=== PATIENT | male | born 1985 | race Caucasian/White ===

== ENCOUNTER 2020-09-18 15:55 | Emergency (ER) | payer MEDICAID ==
[~2020-09-18] VITALS: Ht 177.8 cm; Wt 88.6 kg
[2020-09-18 16:08] VITALS: BP 144/92
[2020-09-18] MEDS ORDERED: IBUPROFEN 400 MG TABLET PO ONE (18:45)
[2020-09-18] MEDS ORDERED: ACETAMINOPHEN 325 MG TABLET PO ONE (18:45)
[2020-09-18] MEDS ORDERED: BACITRACIN 0.9 GM PACKET OINTMENT TP ONE (19:00)
== END 2020-09-18 19:36 | disposition home or self-care (01) ==
LOC: EMS 15:55
DX: S93.401A Sprain of unspecified ligament of right ankle, initial encounter (principal); F12.90 Cannabis use, unspecified, uncomplicated; Z88.8 Allergy status to other drugs, medicaments and biological substances; W10.9XXA Fall (on) (from) unspecified stairs and steps, initial encounter; Y93.89 Activity, other specified; Y92.008 Other place in unspecified non-institutional (private) residence as the place of occurrence of the external cause; Y99.8 Other external cause status

== ENCOUNTER 2020-10-24 09:39 | Emergency (ER) | payer MEDICAID ==
[~2020-10-24] VITALS: Ht 180.3 cm; Wt 95.5 kg
[2020-10-24] MEDS ORDERED: ACET-66 PO (09:43)
[2020-10-24 11:12] LABS: BASOPHILS % (AUTO) 0.5 % (0.0-2.0); EOSINOPHILS % (AUTO) 0.4 % (1.0-6.0); HEMATOCRIT 44.9 % (41-53); HEMOGLOBIN 15.1 g/dL (13.5-17.5); LYMPHOCYTES # (AUTO) 0.8 K/uL (1.0-4.8); LYMPHOCYTES % (AUTO) 7.8 % (22.0-44.0); MEAN CORPUSCULAR HEMOGLOBIN 31.8 pg (26.0-34.0); MEAN CORPUSCULAR HGB CONC 33.7 G/dL (31.0-37.0); MEAN CORPUSCULAR VOLUME 94 fL (80-100); MONOCYTES # (AUTO) 0.7 K/uL (0.1-1.0); MONOCYTES % (AUTO) 7.4 % (2.0-9.0); NEUTROPHILS # (AUTO) 8.1 K/uL (1.8-7.7); NEUTROPHILS % (AUTO) 83.9 % (40.0-70.0); PLATELET COUNT (AUTO) 215 K/uL (150-450); RED BLOOD CELL COUNT(AUTO) 4.77 MIL/uL (4.50-5.90); RED CELL DISTRIBUTION WIDTH 13.2 % (11.5-14.5)
[2020-10-24] MEDS ORDERED: MECLIZINE HCL 25 MG TABLET PO ONE (11:15)
[2020-10-24] MEDS ORDERED: ONDANSETRON HCL 4 MG/2 ML VIAL IVP ONE (11:15)
[2020-10-24] MEDS ORDERED: KETOROLAC TROMETHAMINE 30 MG/ML VIAL IVP ONE (11:15)
[2020-10-24] MEDS ORDERED: SODIUM CHLORIDE 0.9% 1,000 ML IV ONE (11:15)
[2020-10-24] MEDS ORDERED: ACETAMINOPHEN 500 MG TABLET PO ONE (11:15)
[2020-10-24 11:16] LABS: ANION GAP 7 mmol/L (8-16); CALCIUM, TOTAL 9.6 mg/dL (8.8-10.5); CARBON DIOXIDE 28 mmol/L (22-29); CHLORIDE 104 mmol/L (98-107); CREATININE 0.83 mg/dL (0.60-1.30); GLOMERULAR FILTR. RATE CALC > 60 mL/min (>60); GLUCOSE,RANDOM 131 mg/dL (70-110); POTASSIUM 4.6 mmol/L (3.5-5.1); SODIUM SERUM 139 mmol/L (136-145); UREA NITROGEN, BLOOD 12 mg/dL (7-18)
[2020-10-24 11:23] LABS: ALANINE AMINOTRANSFERASE 56 U/L (12-78); ALBUMIN 4.1 g/dL (3.4-5.0); ALKALINE PHOSPHATASE 66 U/L (46-116); ASPARTATE AMINOTRANSFERASE 41 U/L (15-37); BILIRUBIN,TOTAL 0.5 mg/dL (0.1-1.0); TOTAL PROTEIN, SERUM 8.4 g/dL (6.4-8.2)
[2020-10-24 13:20] VITALS: BP 135/71
== END 2020-10-24 14:33 | disposition home or self-care (01) ==
LOC: EMS 09:40
DX: R42 Dizziness and giddiness (principal); R11.0 Nausea; R20.2 Paresthesia of skin; F12.90 Cannabis use, unspecified, uncomplicated
CPT/HCPCS: 36415; 80053; 85025; 93005; 96361; 96374; 96375; 99284; G0480; J1885; J2405; J7030

== ENCOUNTER 2022-09-07 13:16 | Emergency (ER) | payer MEDICAID ==
[~2022-09-07] VITALS: Ht 177.8 cm; Wt 86.4 kg
[~2022-09-07 13:16] MED LIST: ACET-3385 PO
[2022-09-07 14:18] VITALS: BP 147/92
[2022-09-07] MEDS ORDERED: AMOX250C4 PO (14:41)
[2022-09-07] MEDS ORDERED: BACITRACIN 0.9 GM PACKET OINTMENT TP ONE (14:45)
[2022-09-07] MEDS ORDERED: PERTUSS(ACELL),DIPH,TET VAC/PF 0.5 ML SYRINGE IM. ONE (14:45)
== END 2022-09-07 14:56 | disposition home or self-care (01) ==
LOC: EMS 13:18
DX: S61.512A Laceration without foreign body of left wrist, initial encounter (principal); Z87.2 Personal history of diseases of the skin and subcutaneous tissue; Z88.1 Allergy status to other antibiotic agents; W25.XXXA Contact with sharp glass, initial encounter; Y93.89 Activity, other specified; Y92.89 Other specified places as the place of occurrence of the external cause; Y99.8 Other external cause status
CPT/HCPCS: 90471; 90715; 99283

== ENCOUNTER 2023-11-13 11:08 | Emergency (ER) | payer BC, MEDICAID ==
[~2023-11-13] VITALS: Ht 180.3 cm; Wt 93.2 kg
[~2023-11-13 11:08] MED LIST changes: -ACET-3385 PO; +AMOX250C4 PO
[2023-11-13 11:19] VITALS: BP 135/80; PULSE 93; RESP 16; TEMP 98.1
== END 2023-11-13 14:11 | disposition left against medical advice (07) ==
LOC: EMS 11:08
DX: R00.2 Palpitations (principal); Z98.890 Other specified postprocedural states; Z88.8 Allergy status to other drugs, medicaments and biological substances
CPT/HCPCS: 71045; 93005; 99283

== ENCOUNTER 2024-03-24 14:41 | Emergency (ER) | payer BC, MEDICAID ==
[~2024-03-24] VITALS: Ht 180.3 cm; Wt 97.0 kg
[2024-03-24 15:18] VITALS: TEMP 98.3
[2024-03-24] MEDS: LIDOCAINE 1% 10 ML VIAL SQ ONE (17:20)
[2024-03-24] MEDS ORDERED: IBUP-1554 PO (18:24)
[2024-03-24] MEDS ORDERED: PENI500T2 PO (18:24)
[2024-03-24] MEDS ORDERED: ACET-66 PO (18:24)
[2024-03-24 18:30] VITALS: BP 138/84; PULSE 89; RESP 16
== END 2024-03-24 18:47 | disposition home or self-care (01) ==
LOC: EMS 14:41
DX: S01.511A Laceration without foreign body of lip, initial encounter (principal); I10 Essential (primary) hypertension; Z98.890 Other specified postprocedural states; Z88.8 Allergy status to other drugs, medicaments and biological substances; W45.8XXA Other foreign body or object entering through skin, initial encounter; Y93.89 Activity, other specified; Y92.89 Other specified places as the place of occurrence of the external cause; Y99.8 Other external cause status
CPT/HCPCS: 40650; 99284; J3490; 99283